=== PATIENT | male | born 1965 ===

== ENCOUNTER 2020-03-10 09:52 | Outpatient (CLI) | payer OTHER ==
[2020-03-10 10:21] LABS: ALT ALANINE AMINOTRANSFERASE 88 IU/L (10-60); AST ASPARTATE AMINOTRANSFERASE 42 IU/L (10-42); CHOL/HDL RATIO 3.7 (<5.0); CHOLESTEROL 211 mg/dL; HDL CHOLESTEROL 57 mg/dL; LDL CHOLESTEROL,CALCULATED 127 mg/dL; LDL/HDL RATIO 2.2 (<3.6); VLDL CHOLESTEROL 27 mg/dL
== END 2020-03-10 09:53 | disposition home or self-care (01) ==
LOC: LAB 09:52
PROVIDERS: ATTEND Family Medicine
DX: E78.00 Pure hypercholesterolemia, unspecified (principal); R74.8 Abnormal levels of other serum enzymes
CPT/HCPCS: 36415; 80061; 83721; 84450; 84460

== ENCOUNTER 2020-11-07 09:56 | Outpatient (CLI) | payer OTHER ==
[2020-11-07 10:37] LABS: ALT ALANINE AMINOTRANSFERASE 91 IU/L (10-60); AST ASPARTATE AMINOTRANSFERASE 50 IU/L (10-42); CHOL/HDL RATIO 2.8 (<5.0); CHOLESTEROL 159 mg/dL; HDL CHOLESTEROL 57 mg/dL; LDL CHOLESTEROL,CALCULATED 89 mg/dL; LDL/HDL RATIO 1.6 (<3.6); TRIGLYCERIDES 65 mg/dL; VLDL CHOLESTEROL 13 mg/dL
== END 2020-11-07 09:57 | disposition home or self-care (01) ==
LOC: LAB 09:56
PROVIDERS: ATTEND Family Medicine
DX: E78.00 Pure hypercholesterolemia, unspecified (principal); R74.8 Abnormal levels of other serum enzymes
CPT/HCPCS: 36415; 80061; 83721; 84450; 84460